=== PATIENT | male | born 2000 | race Asian ===

== ENCOUNTER 2023-07-12 16:13 | Emergency (ER) | payer MEDICAID, SELFPAY ==
[2023-07-12 16:20] VITALS: BP 151/100; PULSE 111; RESP 18; TEMP 36.4; O2SAT 96; BMI 30.8
--- NOTE | 2023-07-12 19:06 | ED.PSYCH ---
HPI - Psych General Chief Complaint: Psychiatric Problem/Disorder Stated Complaint: mental health Time Seen by Provider: 07/12/23 18:40 History of Present Illness HPI Narrative: This 23-year-old male comes in with a friend because of increased depression and some anxiety symptoms. The patient is not talking to me throughout the time of the interview but he did began to answer yes and no by nodding or shaking his head. His friend with him says that she is almost like a mother to him. She states that something significant did happen yesterday but there is a background of some complicated things. The patient is legally blind and I note that he has very white colored hair. He is wearing a baseball cap so I did not get to see his eyes but it made me wonder if he is albino. He states that he is not taking any medications. He denies using any street drugs or alcohol and has not had any audio or visual hallucinations. He does have a background history of some depression and anxiety with depression being the stronger symptom. There is no report of any prior hospitalization or self-harm. Related Data Home Medications Medication Instructions Recorded Confirmed No Known Home Medications 07/12/23 07/12/23 Allergies Allergy/AdvReac Type Severity Reaction Status Date / Time No Known Drug Allergies Allergy Verified 07/12/23 16:23 Review of Systems Status of ROS: Reports: 10 or more systems reviewed and unremarkable except as noted in History and below Narrative: Unable to obtain due to mental status. PFSH PFS Social History Smoking Status: Never smoker Second hand tobacco smoke exposure: No How often do you have a drink containing alcohol: never AUDIT-C Alcohol total score: 0 Non-prescribed substance use: denies use Exam Narrative: Exam Narrative: Constitutional: Well-developed, well-nourished, no acute distress. HEENT: Normocephalic, atraumatic. Legally blind. Neck: Normal range of motion. Nontender. Supple. Heart: Intact distal pulses. Lungs: No chest discomfort. No wheezes, rhonchi, or rales. Abdomen: Nontender. Back: Normal range of motion. Extremities: Normal range of motion. No injury. Skin: Intact. No rash. Warm. No erythema or pallor. Neurologic: No altered sensation. No weakness. Alert and oriented. Psychiatric: Depression with some anxiety. Suicidal thoughts but no specific plan. Nursing notes and vitals signs are reviewed. Const: Vital Signs, click to edit/add: Vital Signs - 24 hr 07/12/23 16:20 07/12/23 21:15 Temperature 97.5 F L 98.2 F Pulse Rate [Right Pulse Oximeter] 111 H 95 Respiratory Rate 18 18 Blood Pressure [Ri ght Upper Arm] 151/100 H 124/74 Pulse Oximetry 96 96 Oxygen Delivery Me thod Room Air Room Air Course Vital Signs Vital signs: Initial Vital Signs Temperature 97.5 F L 07/12/23 16:20 Temperature Source Temporal Artery Scan 07/12/23 16:20 Pulse Rate 111 H 07/12/23 16:20 Respiratory Rate 18 07/12/23 16:20 Blood Pressure 151/100 H 07/12/23 16:20 Blood Pressure Mean 117 H 07/12/23 16:20 Blood Pressure Position Sitting 07/12/23 16:20 Pulse Oximetry 96 07/12/23 16:20 Oxygen Delivery Method Room Air 07/12/23 16:20 Vital Signs Temperature 97.5 F L 07/12/23 16:20 Pulse Rate 111 H 07/12/23 16:20 Respiratory Rate 18 07/12/23 16:20 Blood Pressure 151/100 H 07/12/23 16:20 Pulse Oximetry 96 07/12/23 16:20 Oxygen Delivery Method Room Air 07/12/23 16:20 Temperature 98.2 F 07/12/23 21:15 Pulse Rate 95 07/12/23 21:15 Respiratory Rate 18 07/12/23 21:15 Blood Pressure 124/74 07/12/23 21:15 Pulse Oximetry 96 07/12/23 21:15 Oxygen Delivery Method Room Air 07/12/23 21:15 MDM - Psych MDM Narrative Medical decision making narrative: This patient comes in with change in function and he is non communicating verbally with me but did answer questions yes and no by a nodding or shaking his head. A telehealth assessment occurred and he was more verbal. I did speak with the tele health farm operator who stated that he felt he had 2 options this morning. He was either going to take his gun and shoot himself for also travel to I believe it was [place]. He apparently had some significant events that occurred yesterday that made things much worse for him. It was recommended to seek inpatient placement and the patient is agreeable with this plan. However there are no beds available so the tele health farm operator reassessed him to make a contract for safety and discharged home. The patient has now decided that he does want to stay here overnight in the event that something might open up and reassess his options again in the morning. His labs are acquired in the returned normal except for elevated hemoglobin at 18.0 and elevated glucose at 302. Care for this patient is transferred to the next ER physician. Lab Data Labs: Lab Results 07/12/23 07/12/23 07/12/23 Range/Units 20:25 20:35 20:35 WBC 9.44 (4.50-11.00) K/uL RBC 5.71 (4.30-5.90) m/uL Hgb 18.0 H (13.5-17.5) gm/dL Hct 51.4 (37.0-53.0) % MCV 90 (80-100) fL MCH 32 (26-34) pg MCHC 35 (32-36) gm/dL RDW Coeff of Gopi 11.7 (11.5-15.5) % Plt Count 312 (140-440) K/uL Neut % (Auto) 65.9 (42.0-72.0) % Lymph % (Auto) 28.5 (20-44) % Glasscock % (Auto) 4.6 (0.0-11.0) % Eos % (Auto) 0.5 (0.0-7.0) % Baso % (Auto) 0.3 (0.0-3.0) % Neut # (Auto) 6.22 (1.7-7.0) K/uL Lymph # (Auto) 2.69 (0.90-2.90) K/uL Glasscock # (Auto) 0.40 (0.00-0.90) K/UL Eos # (Auto) 0.05 (0.00-0.50) K/uL Baso # (Auto) 0.03 (0.00-0.30) K/uL Abs Immat Gran (auto) 0.02 (0.00-0.30) K/uL Imm/Tot Granulo (auto) 0.2 % Sodium 136 (135-149) mmol/L Potassium 3.7 (3.6-5.1) mmol/L Chloride 103 (96-114) mmol/L Carbon Dioxide 25 (20-32) mmol/L Anion Gap 8 (7-15) mEq/L BUN 13 (5-24) mg/dL Creatinine 0.7 (0.5-1.5) mg/dL Estimated Creat Clear 166.57 Estimated GFR 131 ml/min Glucose 302 H (60-115) mg/dL Calcium 9.8 (8.4-10.6) mg/dL Urine Opiates Screen Negative (Negative) Ur Oxycodone Screen Negative (Negative) Urine Methadone Screen Negative (Negative) Ur Barbiturates Screen Negative (Negative) U Tricyclic Antidepress Negative (Negative) Ur Phencyclidine Scrn Negative (Negative) Ur Amphetamines Screen Negative (Negative) U Methamphetamines Scrn Negative (Negative) U Benzodiazepines Scrn Negative (Negative) Urine Cocaine Screen Negative (Negative) U Marijuana (THC) Screen Negative (Negative) Ur Drug Screen Comment See Note Ethyl Alcohol < 0.01 L Cancelled (0.01-0.03) % SARS-CoV-2 (PCR) (Negative) 07/12/23 Range/Units 20:36 WBC (4.50-11.00) K/uL RBC (4.30-5.90) m/uL Hgb (13.5-17.5) gm/dL Hct (37.0-53.0) % MCV (80-100) fL MCH (26-34) pg MCHC (32-36) gm/dL RDW Coeff of Gopi (11.5-15.5) % Plt Count (140-440) K/uL Neut % (Auto) (42.0-72.0) % Lymph % (Auto) (20-44) % Glasscock % (Auto) (0.0-11.0) % Eos % (Auto) (0.0-7.0) % Baso % (Auto) (0.0-3.0) % Neut # (Auto) (1.7-7.0) K/uL Lymph # (Auto) (0.90-2.90) K/uL Glasscock # (Auto) (0.00-0.90) K/UL Eos # (Auto) (0.00-0.50) K/uL Baso # (Auto) (0.00-0.30) K/uL Abs Immat Gran (auto) (0.00-0.30) K/uL Imm/Tot Granulo (auto) % Sodium (135-149) mmol/L Potassium (3.6-5.1) mmol/L Chloride (96-114) mmol/L Carbon Dioxide (20-32) mmol/L Anion Gap (7-15) mEq/L BUN (5-24) mg/dL Creatinine (0.5-1.5) mg/dL Estimated Creat Clear Estimated GFR ml/min Glucose (60-115) mg/dL Calcium (8.4-10.6) mg/dL Urine Opiates Screen (Negative) Ur Oxycodone Screen (Negative) Urine Methadone Screen (Negative) Ur Barbiturates Screen (Negative) U Tricyclic Antidepress (Negative) Ur Phencyclidine Scrn (Negative) Ur Amphetamines Screen (Negative) U Methamphetamines Scrn (Negative) U Benzodiazepines Scrn (Negative) Urine Cocaine Screen (Negative) U Marijuana (THC) Screen (Negative) Ur Drug Screen Comment Ethyl Alcohol (0.01-0.03) % SARS-CoV-2 (PCR) Negative SARS-CoV-2 (Negative) Discharge Plan Discharge Clinical Impression: Suicidal ideation Prescriptions: No Action No Known Home Medications Follow Up/Referrals: Provider,Not a Local [Primary Care Provider] -
[2023-07-12 20:41] LABS: Basophils Absolute Auto 0.03 K/uL (0.00-0.30); Basophils Percent Auto 0.3 % (0.0-3.0); Eosinophils Absolute Auto 0.05 K/uL (0.00-0.50); Eosinophils Percent Auto 0.5 % (0.0-7.0); Hematocrit 51.4 % (37.0-53.0); Immature Granulocytes Abs Auto 0.02 K/uL (0.00-0.30); Immature Granulocytes Pct Auto 0.2 %; Lymphocytes Absolute Auto 2.69 K/uL (0.90-2.90); Lymphocytes Percent Auto 28.5 % (20-44); Mean Corpuscular HGB Conc 35 gm/dL (32-36); Mean Corpuscular Hemoglobin 32 pg (26-34); Mean Corpuscular Volume 90 fL (80-100); Monocytes Percent Auto 4.6 % (0.0-11.0); Neutrophils Absolute Auto 6.22 K/uL (1.7-7.0); Neutrophils Percent Auto 65.9 % (42.0-72.0); Platelet Count* 312 K/uL (140-440); RDW Coefficient of Variation % 11.7 % (11.5-15.5); Red Blood Count 5.71 m/uL (4.30-5.90); White Blood Count* 9.44 K/uL (4.50-11.00)
[2023-07-12 20:50] LABS: Slide Review Reflex No
[2023-07-12 20:52] LABS: Amphetamine Screen Urine Negative (Negative); Barbiturate Screen Urine Negative (Negative); Benzodiazepines Screen Urine Negative (Negative); Cannabinoid Screen Urine Negative (Negative); Cocaine Screen Urine Negative (Negative); Methadone Screen Urine Negative (Negative); Methamphetamines Screen Urine Negative (Negative); Opiate Screen Urine Negative (Negative); Oxycodone Screen Urine Negative (Negative); Phencyclidine Screen Urine Negative (Negative); Tricyclic Antidepressant Urine Negative (Negative)
[2023-07-12 20:57] LABS: Chloride* 103 mmol/L (96-114)
[2023-07-12 20:58] LABS: Potassium* 3.7 mmol/L (3.6-5.1); Sodium* 136 mmol/L (135-149)
[2023-07-12 21:00] LABS: Anion Gap 8 mEq/L (7-15); Carbon Dioxide* 25 mmol/L (20-32); Creatinine* 0.7 mg/dL (0.5-1.5); Est. Creatinine Clearance* 166.57; Estimated Glomerular Filt Rate 131 ml/min
[2023-07-12 21:01] LABS: Blood Urea Nitrogen* 13 mg/dL (5-24); Calcium* 9.8 mg/dL (8.4-10.6); Glucose* 302 mg/dL (60-115)
[2023-07-12 21:03] LABS: Ethanol* < 0.01 % (0.01-0.03)
[2023-07-12 21:14] LABS: SARS PCR* Negative SARS-CoV-2 (Negative)
[2023-07-12 21:15] VITALS: BP 124/74; PULSE 95; RESP 18; TEMP 36.8; O2SAT 96
[2023-07-13 01:02] VITALS: BP 118/70; PULSE 84; RESP 18; TEMP 36.8; O2SAT 96
[2023-07-13 06:35] VITALS: BP 121/72; PULSE 85; RESP 18; TEMP 36.8; O2SAT 96
[2023-07-13 08:00] VITALS: BP 126/91; PULSE 95; RESP 18; O2SAT 94
== END 2023-07-13 13:02 | disposition home or self-care (01) ==
PROVIDERS: Emergency Provider Emergency Medicine Emergency Medical Services
DX: R45.851 Suicidal ideations (principal)
CPT/HCPCS: 36415; 80048; 80306; 82077; 85025; 87631; 87635; 99283; 99284; 99285